=== PATIENT | male | born 1960 | race Caucasian/White ===

== ENCOUNTER 2018-08-13 10:36 | Emergency (ER) | payer OTHER ==
[2018-08-13] MEDS ORDERED: Ketorolac INJ* 60 MG/2 ML VIAL IM ONE (12:33)
[2018-08-13 13:27] VITALS: BP 151/104
--- NOTE | 2018-08-13 13:46 | ED ---
Upper Extremity Pain - HPI Summary HPI Summary: Patient is a 57-year-old male presenting to the ED with right shoulder injury. She states - History of Current Complaint Chief Complaint: EDShoulderClavicleInj Stated Complaint: FELL OF STAIRS RIGHT SHOULDER PAIN PER PT Time Seen by Provider: 08/13/18 10:49 Hx Obtained From: Patient Mechanism Of Injury: Blunt Trauma Onset/Duration: Started Hours Ago Timing: Constant Severity Initially: Moderate Severity Currently: Moderate Pain Location: Shoulder Character: Aching Aggravating Factor(s): Movement, Lifting, Flexion, Extension Alleviating Factor(s): Rest, Ice Associated Signs & Symptoms: Positive: Negative. Negative: Swelling, Redness, Weakness, Numbness/Tingling Related History: Dominant Hand Right - Risk Factors Non-Orthopedic Risk Factor: Negative DVT Risk Factors: Negative Septic Arthritis Risk Factor: Negative - Allergies/Home Medications Allergies/Adverse Reactions: Allergies Allergy/AdvReac Type Severity Reaction Status Date / Time No Known Allergies Allergy Verified 08/13/18 10:43 Home Medications: Home Medications ALPRAZolam TAB* [Xanax TAB*] 0.25 mg PO BID PRN 08/13/18 [History Confirmed ] Naproxen Sodium [Aleve] 440 mg PO BID 08/13/18 [History Confirmed 08/13/18] QUEtiapine TAB* [Seroquel 100 MG *] 100 mg PO BEDTIME 08/13/18 [History Confirmed 08/13/18] Sertraline* [Zoloft*] 200 mg PO DAILY 08/13/18 [History Confirmed 08/13/18] PMH/Surg Hx/FS Hx/Imm Hx Previously Healthy: Yes - Immunization History Hx Pertussis Vaccination: No Immunizations Up to Date: Yes Infectious Disease History: No Infectious Disease History: Denies: Traveled Outside the [place] in Last 30 Days - Social History Occupation: Employed Full-time Lives: With Family Alcohol Use: Occasionally Hx Substance Use: No Substance Use Type: Reports: None Smoking Status (MU): Former Smoker Review of Systems Constitutional: Negative Negative: Fever, Chills, Fatigue, Skin Diaphoresis Negative: Palpitations, Chest Pain Negative: Shortness Of Breath, Cough Genitourinary: Negative Positive: no symptoms reported, see HPI Positive: Arthralgia - right shoulder pain - worse with movement. Neer test positive. empty can positive. Negative: Myalgia Skin: Negative All Other Systems Reviewed And Are Negative: Yes Physical Exam Triage Information Reviewed: Yes Vital Signs On Initial Exam: Initial Vitals Temp Pulse Resp BP Pulse Ox 97.7 F 95 16 154/91 96 08/13/18 10:41 08/13/18 10:41 08/13/18 10:41 08/13/18 10:41 08/13/18 10:41 Vital Signs Reviewed: Yes Appearance: Positive: Well-Appearing, Well-Nourished Head/Face: Positive: Normal Head/Face Inspection Eyes: Positive: EOMI, Conjunctiva Clear Neck: Positive: Supple, No Lymphadenopathy Respiratory/Lung Sounds: Positive: Clear to Auscultation, Breath Sounds Present Cardiovascular: Positive: RRR, Pulses are Symmetrical in both Upper and Lower Extremities Musculoskeletal: Positive: Pain @ - right shoulder pain s/p fall Neurological: Positive: Sensory/Motor Intact, Alert, Oriented to Person Place, Time, Speech Normal Psychiatric: Positive: Affect/Mood Appropriate AVPU Assessment: Alert Diagnostics - Vital Signs Vital Signs Temp Pulse Resp BP Pulse Ox 08/13/18 13:23 97.9 F 63 16 151/104 99 08/13/18 10:41 97.7 F 95 16 154/91 96 - Laboratory Lab Statement: Any lab studies that have been ordered have been reviewed, and results considered in the medical decision making process. Course/Dx - Course Course Of Treatment: During the course of tx patient is evaluated for R shoulder injury s/p fall. Neer test positive. Empty can test positive. michaels radha positive. Xray shows no acute findings of dislocation or fracture. Possibility of a RTC injury/tear. This was explained to patient. He will f[place]u with orthopedics in [place]. - Diagnoses Differential Diagnosis/HQI/PQRI: Positive: Fracture (Open), Fracture (Closed), Strain, Sprain Provider Diagnoses: Shoulder injury Discharge - Sign-Out/Discharge Documenting (check all that apply): Patient Departure Patient Received Moderate/Deep Sedation with Procedure: No - Discharge Plan Condition: Stable Disposition: HOME Prescriptions: Ketorolac TAB * [Toradol TAB *] 10 mg PO Q6H #16 tab Patient Education Materials: Shoulder Pain (ED) Referrals: Monico Morse MD [Medical Doctor] - No Primary Care Phys,NOPCP [Primary Care Provider] - Additional Instructions: Ice to the area today, tomorrow start using heat and avoid ice Gentle pendulum exercises and stretches may help with discomfort Please follow up with orthopedic physician Toradol 4 times daily 4 days. Next dose is at 4 PM You may also take Tylenol intermittently for better pain control - Billing Disposition and Condition Condition: STABLE Disposition: Home
== END 2018-08-13 13:23 | disposition home or self-care (01) ==
LOC: ED 10:36
DX: S49.91XA Unspecified injury of right shoulder and upper arm, initial encounter (principal); M25.511 Pain in right shoulder; Z87.891 Personal history of nicotine dependence; W10.9XXA Fall (on) (from) unspecified stairs and steps, initial encounter; Y92.9 Unspecified place or not applicable
CPT/HCPCS: 96372; 99282; J1885